=== PATIENT | female | born 1940 | race Caucasian/White ===

== ENCOUNTER 2018-01-25 14:00 | Outpatient (CLI) | payer OTHER ==
[~2018-01-25 14:00] MED LIST: ALTACE1.25 M1; GLUCOPHAGE XR500 MG; ZETIA10 MG
== END 2018-01-25 14:08 | disposition home or self-care (01) ==
LOC: RAD 14:00
DX: H25.011 Cortical age-related cataract, right eye (principal); Z98.41 Cataract extraction status, right eye